=== PATIENT | male | born 1980 | race Caucasian/White ===

== ENCOUNTER 2018-08-06 23:19 | Emergency (ER) | payer OTHER, MEDICAID ==
[~2018-08-06] VITALS: Ht 180.3 cm; Wt 65.8 kg
[2018-08-07] VITALS: BP_SYST 127
--- NOTE | 2018-08-07 | NUR ---
0000 - Pt in hallway on EMS [place]. No distress. Reports that he started having a GONZALES and some blurry vision this morning, and those are the same symptoms he had back in january when he had a brain bleed. pt states he took tylenol twice today w/ no relief. Awaiting MD clifford, and CT scan. A&OX4, resp even and unlabored, no complaints of blurry vision at this time. Pt wearing glasses.
--- NOTE | 2018-08-07 01:55 | NUR ---
0155 - ER at bedside examining patient.
[2018-08-07 02:25] VITALS: BP_SYST 127
--- NOTE | 2018-08-07 02:25 | NUR ---
0225 - Patient given written and verbal discharge instructions and verbalizes understanding. ER MD discussed with patient the results and treatment provided. Patient in stable condition. ID arm band removed. Patient educated on pain management and to follow up with PMD. Pain Scale 0/flacc. Opportunity for questions provided and answered. Medication side effect fact sheet provided. w/ ems personnel
--- NOTE | 2018-08-07 17:23 | NUR ---
CALLED AND LEFT MESSAGE AFTER RECEIVING DISCREPTANCY IN CT HEAD. AWAITING CALL BACK
--- NOTE | 2018-08-07 17:24 | NUR ---
PER DR ESCOBAR PT WILL NEED TO FOLLOW UP WITH PMD WITHIN 1 WEEK AND FOLLOW UP MRI. AWAITING CALL BACK
== END 2018-08-07 02:25 | disposition home or self-care (01) ==
LOC: SED 23:19
DX: R51 Headache (principal); R03.0 Elevated blood-pressure reading, without diagnosis of hypertension; F32.9 Major depressive disorder, single episode, unspecified
CPT/HCPCS: 70450-TC; 99284